=== PATIENT | female | born 1995 | race Native Hawaiian/Other Pacific Islander ===

== ENCOUNTER 2018-07-18 08:34 | Day surgery (SDC) | payer OTHER ==
[~2018-07-18] VITALS: Ht 30.5 cm; Wt 0.5 kg
[2018-07-18 09:44] LABS: PLATELET COUNT 589 K/uL (152-353)
[2018-07-18 09:54] LABS: POTASSIUM 3.9 mmol/L (3.6-5.2)
== END 2018-07-18 13:57 | disposition home or self-care (01) ==
LOC: OR 08:34
PROVIDERS: Student in an Organized Health Care Education/Training Program
PROC: 0D9P0ZZ Drainage of Rectum, Open Approach (ICD-10-PCS; principal; 2018-07-18)
PROC: 0D9Q80Z Drainage of Anus with Drainage Device, Via Natural or Artificial Opening Endoscopic (ICD-10-PCS; 2018-07-18)
DX: K51.90 Ulcerative colitis, unspecified, without complications (principal); K61.1 Rectal abscess; K60.3 Anal fistula
CPT/HCPCS: 80053; 81025; 85027; 87070; 87076; 87077; 87185; 87205; J0132; J0744; J1100; J1170; J1200; J1885; J2001; J2250; J2405; J2704; J3010; J3490